=== PATIENT | female | born 1980 | race Hispanic/Latino ===

== ENCOUNTER 2017-11-23 11:56 | Emergency (ER) | payer SELFPAY ==
[~2017-11-23] VITALS: Ht 157.5 cm; Wt 99.8 kg
[~2017-11-23 11:56] MED LIST: AMOXICILLIN500 MG PO; CARAFATE1 GM PO; NORCO 5-325 TA1 EACH PO; PRILOSEC40 MG PO
== END 2017-11-23 12:29 | disposition home or self-care (01) ==
LOC: ED 11:56
DX: M54.6 Pain in thoracic spine (principal); W22.8XXA Striking against or struck by other objects, initial encounter; Y92.89 Other specified places as the place of occurrence of the external cause

== ENCOUNTER 2019-02-26 10:27 | Emergency (ER) | payer OTHER ==
[~2019-02-26] VITALS: Ht 157.5 cm; Wt 93.0 kg
[2019-02-26] MEDS ORDERED: LISINOPRIL10 MG PO (10:44)
[2019-02-26] MEDS ORDERED: SUCRALFATE1 GM PO (10:44)
== END 2019-02-26 11:43 | disposition home or self-care (01) ==
LOC: ED 10:27
DX: S93.402A Sprain of unspecified ligament of left ankle, initial encounter (principal); S86.012A Strain of left Achilles tendon, initial encounter; Z90.49 Acquired absence of other specified parts of digestive tract; Z79.899 Other long term (current) drug therapy; X50.1XXA Overexertion from prolonged static or awkward postures, initial encounter
CPT/HCPCS: 73610; 99283

== ENCOUNTER 2022-03-27 06:50 | Emergency (ER) | payer OTHER, BC ==
[~2022-03-27] VITALS: Ht 157.5 cm; Wt 106.6 kg
[~2022-03-27 06:50] MED LIST changes: +INDOMETHACIN50 MG PO; +LISINOPRIL10 MG PO; +SUCRALFATE1 GM PO; +ULTRAM50 MG PO
[2022-03-27] MEDS ORDERED: PREGABALIN75 MG PO (08:07)
[2022-03-27] MEDS ORDERED: ESCITALOPRAM OX10 MG PO (08:07)
[2022-03-27] MEDS ORDERED: PREDNISONE20 MG PO (10:04)
== END 2022-03-27 11:41 | disposition home or self-care (01) ==
LOC: ED 06:50
DX: S43.401A Unspecified sprain of right shoulder joint, initial encounter (principal); M25.531 Pain in right wrist; M54.2 Cervicalgia; I10 Essential (primary) hypertension; Z79.899 Other long term (current) drug therapy; X58.XXXA Exposure to other specified factors, initial encounter; Y93.H9 Activity, other involving exterior property and land maintenance, building and construction
CPT/HCPCS: 72040; 73030; 99283-25; A9270

== ENCOUNTER 2022-10-26 16:47 | Emergency (ER) | payer OTHER ==
[~2022-10-26] VITALS: Ht 157.5 cm; Wt 106.6 kg
[~2022-10-26 16:47] MED LIST changes: +ESCITALOPRAM OX10 MG PO; +PREDNISONE20 MG PO; +PREGABALIN75 MG PO
[2022-10-26] MEDS ORDERED: LOMOTIL TABLET1 EACH PO (18:15)
[2022-10-26] MEDS ORDERED: ONDANSETRON ODT8 MG PO (18:15)
== END 2022-10-26 18:28 | disposition home or self-care (01) ==
LOC: ED 16:47
DX: R19.7 Diarrhea, unspecified (principal); I10 Essential (primary) hypertension; Z79.899 Other long term (current) drug therapy
CPT/HCPCS: 36415; 80053; 81003; 83690; 84703; 85025; 96374; 99284-25; J2405; J7030